=== PATIENT | male | born 1980 | race Two or more races ===

== ENCOUNTER 2024-02-06 12:39 | Emergency (ER) | payer BC, OTHER ==
[2024-02-06 13:28] LABS: BASOPHILS PERCENT AUTO 1.4 % (0.0-1.0); EOSINOPHILS PERCENT AUTO 2.8 % (0.0-6.0); HEMATOCRIT 46.4 % (42.0-52.0); HEMOGLOBIN 16.4 g/dL (14.0-18.0); IMMATURE GRAN ABSOLUTE AUTO 0.01 K/uL (0.00-0.05); IMMATURE GRAN PERCENT AUTO 0.1 % (0.0-0.4); LYMPHOCYTES ABSOLUTE AUTO 2.33 K/uL (1.00-4.80); LYMPHOCYTES PERCENT AUTO 32.2 % (24.0-44.0); MEAN CORPUSCULAR HEMOGLOBIN 29.9 pg (28.0-32.0); MEAN CORPUSCULAR HGB CONC 35.3 g/dL (32.0-36.0); MEAN CORPUSCULAR VOLUME 84.7 fL (83.0-99.0); MEAN PLATELET VOLUME 10.6 fL (9.4-12.4); MONOCYTES ABSOLUTE AUTO 0.49 K/uL (0.00-0.80); MONOCYTES PERCENT AUTO 6.8 % (0.0-8.0); NEUTROPHILS PERCENT AUTO 56.7 % (41.0-71.0); PLATELET COUNT,PLT 228 K/uL (150-400); RED BLOOD CELL COUNT 5.48 M/uL (4.52-5.90); WHITE BLOOD CELL COUNT,WBC 7.23 K/uL (3.9-11.3)
[2024-02-06] MEDS ORDERED: Hydrochlorothiazide 12.5 MG Cap PO STA (13:57)
[2024-02-06 13:59] LABS: A/G RATIO 1.1 (0.9-1.6); BILIRUBIN TOTAL 0.5 mg/dL (0.2-1.0); CALCIUM 8.5 mg/dL (8.5-10.1); CARBON DIOXIDE,CO2 29.2 mmol/L (21.0-32.0); CREATININE 1.2 mg/dL (0.8-1.3); EST CRCL DRUG DOSING (CG) 83.67 mL/min; POTASSIUM,K 3.9 mmol/L (3.5-5.1); PROTEIN TOTAL,TP 7.5 g/dL (6.4-8.2)
[2024-02-06] MEDS: Hydrochlorothiazide 25 MG Tab PO STA (14:14)
== END 2024-02-06 14:26 | disposition home or self-care (01) ==
LOC: MW.ED 12:39
DX: G51.0 Bell's palsy (principal); R07.9 Chest pain, unspecified; I10 Essential (primary) hypertension; Z75.8 Other problems related to medical facilities and other health care
CPT/HCPCS: 36415; 71045; 80053; 84484; 85025; 93005; 99285; A9270; 93010